=== PATIENT | male | born 1955 | race Caucasian/White ===

== ENCOUNTER 2021-04-19 03:50 | Inpatient (IN) | payer MEDICARE, SELFPAY ==
[2021-04-19 05:47] LABS: SARS-CoV-2 NAA Rapid Test Not Detected (NotDetected)
[2021-04-19] MEDS ORDERED: Senokot S 8.6-50 MG TAB PO PRN (07:42)
[2021-04-19] MEDS ORDERED: Acetaminophen 325 MG TAB PO PRN (07:42)
[2021-04-19] MEDS ORDERED: Ondansetron PF 4 MG/2 ML Vial IVP PRN (07:42)
[2021-04-19] MEDS ORDERED: Dextrose 5% in Water 1,000 ML IV PRN (07:54)
[2021-04-19] MEDS ORDERED: HumaLOG 300 UNITS/3 ML VIAL SC PRN (07:54)
[2021-04-19] MEDS ORDERED: Dextrose 50% Abboject 50 ML SYRINGE SLOW IVP PRN (07:54)
[2021-04-19 08:16] LABS: Troponin I 0.048 ng/mL (< 0.028)
[2021-04-19 08:17] LABS: Cardiac Risk 2.8 (Less than 4.5)
[2021-04-19] MEDS ORDERED: Enoxaparin Sodium 40 MG/0.4 ML SYRINGE SC SCH (09:00)
[2021-04-19] MEDS: Heparin 5,000 UNITS/ML VIAL SC SCH ×3 (09:10→20:54)
[2021-04-19 13:03] LABS: Troponin I 0.032 ng/mL (< 0.028)
[2021-04-19 15:43] LABS: Troponin I 0.047 ng/mL (< 0.028)
[2021-04-19 17:03] LABS: Bilirubin Negative (Negative); Blood, Urine 1+ (Negative); Clarity Turbid (Clear); Glucose, Urine (Dipstick) Normal (Negative); Ketone, Urine Negative (Negative); Leukocyte 250 Leu/uL (Negative); Nitrite Negative (Negative); Protein, Urine (Dipstick) 30 mg/dL (Neg-Trace); Squamous Epithelial None Seen HPF (0-3); Urobilinogen Normal mg/dL (Less than 2)
[2021-04-19 17:05] LABS: Bacteria/HPF 2+ HPF (None Seen)
[2021-04-19 17:07] LABS: Urine Culture Reflex Yes Yes
[2021-04-19] MEDS: Atorvastatin Calcium 40 MG TAB PO SCH (20:54)
[2021-04-20 05:43] LABS: Hemoglobin A1c 7.9 % (4.0-6.0)
[2021-04-20 05:49] LABS: #Eosinphils 0.3 thou/uL (0.0-0.7); #Lymphocytes 0.9 thou/uL (1.20-3.40); #Monocytes 0.5 thou/uL (0.11-0.59); #Neutrophils 3.1 thou/uL (1.40-6.50); %Basophils 0.6 % (0.0-1.0); %Eosinophils 5.5 % (0.0-10.0); %Lymphocytes 18.1 % (21.0-51.0); %Monocytes 10.6 % (0.0-10.0); %Neutrophils 65.3 % (42.0-75.0); Hemoglobin 11.1 g/dL (14.0-18.0); Mean Corpuscular Hemoglobin 27.1 pg (27.0-31.0); Mean Corpuscular Volume 87.5 fL (78.0-98.0); Mean Platelet Volume 11.5 fL (7.4-10.4); Platelet Count 134 thou/uL (130-400); RBC Distribution Width 17.8 % (11.5-14.5); Red Blood Cell (RBC) Count 4.08 mill/uL (4.70-6.10); White Blood Cell (WBC) Count 4.7 thou/uL (4.8-10.8)
[2021-04-20 06:06] LABS: ALT (SGPT) 10 U/L (8-55); AST (SGOT) 14 U/L (5-34); Alkaline Phosphatase 105 U/L (40-110); Anion Gap 14 mmol/L (10-20); BUN (Urea Nitrogen) 66 mg/dL (8.4-25.7); Bilirubin, Total 0.6 mg/dL (0.2-1.2); Calc. Creatinine Clearance 20 mL/min (70-130); Calcium 8.5 mg/dL (7.8-10.44); Carbon Dioxide 22 mmol/L (23-31); Cardiac Risk 3.1 (Less than 4.5); Chloride 104 mmol/L (98-107); Cholesterol 103 mg/dl (< 200 Desired); Globulin 2.2 g/dL (2.4-3.5); Glucose 90 mg/dL (80-115); HDL Cholesterol 33 mg/dL (>60 Neg Risk); LDL Cholesterol, Calculated 57 mg/dL; Magnesium 1.8 mg/dL (1.6-2.6); Protein, Total 5.2 g/dL (5.8-8.1); Sodium 136 mmol/L (136-145); Triglycerides 66 mg/dL (Less than 150)
[2021-04-20 07:52] LABS: PTT 30.9 sec (22.9-36.1); Prothrombin Time 13.8 sec (12.0-14.7)
[2021-04-20] MEDS: Heparin 5,000 UNITS/ML VIAL SC SCH ×3 (08:55→20:15)
[2021-04-20] MEDS: Aspirin 81 mg Enteric Coated Tablet PO SCH (08:55)
[2021-04-20] MEDS ORDERED: Sodium Bicarbonate 2.5 MEQ/5 ML VIAL ONE (09:44)
[2021-04-20] MEDS ORDERED: Lidocaine 1% PF 5 ML VIAL ONE (09:44)
[2021-04-20] MEDS ORDERED: Fentanyl 100 MCG/2 ML VIAL ONE (10:17)
[2021-04-20] MEDS ORDERED: Midazolam HCl 2 mg/2 ml Vial ONE (10:17)
[2021-04-20] MEDS ORDERED: Sodium Chloride 0.9% 20 ML ONE (10:18)
[2021-04-20 11:05] VITALS: BMI 26.8
[2021-04-20 14:23] LABS: RBC Count-Automated (BF) 0 /cu.mm; WBC/Nucleated-Auto (BF) 10 uL
[2021-04-20 14:40] LABS: Pleural Fluid, Amylase Less than 30 U/L (Not Available); Pleural Fluid, Glucose 102 mg/dL; Pleural Fluid, LDH 46 U/L (Not Available); Pleural Fluid, Protein Less than 1.0 g/dL
[2021-04-20 14:45] LABS: BF Color Yellow; Body Fluid Source Pleural Fluid; Clarity Clear (Clear); Tube # EDTA
[2021-04-20 14:48] LABS: BF Segmented Neutrophils 29 %; Cell Count Non Hematic 54 %; Lymphocytes 17 %
[2021-04-20] MEDS: Bumetanide 1 MG/4 ML VIAL IVP SCH (15:20)
[2021-04-20] MEDS: Atorvastatin Calcium 40 MG TAB PO SCH (20:15)
[2021-04-21] MEDS: Bumetanide 1 MG/4 ML VIAL IVP SCH ×2 (05:02→13:42)
[2021-04-21] MEDS: Heparin 5,000 UNITS/ML VIAL SC SCH ×3 (08:28→22:04)
[2021-04-21] MEDS: Aspirin 81 mg Enteric Coated Tablet PO SCH (08:28)
[2021-04-21] MEDS: Atorvastatin Calcium 40 MG TAB PO SCH (22:04)
[2021-04-22] MEDS: Bumetanide 1 MG/4 ML VIAL IVP SCH ×2 (07:10→11:28)
[2021-04-22] MEDS: Heparin 5,000 UNITS/ML VIAL SC SCH ×2 (08:42→13:57)
[2021-04-22] MEDS: Aspirin 81 mg Enteric Coated Tablet PO SCH (08:42)
[2021-04-22 11:18] VITALS: BP 85/62; TEMP 97.9
[2021-04-23 11:41] LABS: Fungus Stain Final report (.)
== END 2021-04-22 17:22 | DRG 291 ==
LOC: ERS 03:50 → 2SW 04:39 → OBSVTOIN 04-21 12:55 → 2NO 04-21 18:47
PROVIDERS: ADMIT Internal Medicine; ATTEND Internal Medicine
PROC: 0W993ZZ Drainage of Right Pleural Cavity, Percutaneous Approach (ICD-10-PCS; principal; 2021-04-20)
DX: I13.0 Hypertensive heart and chronic kidney disease with heart failure and stage 1 through stage 4 chronic kidney disease, or unspecified chronic kidney disease (principal); I50.23 Acute on chronic systolic (congestive) heart failure; N17.9 Acute kidney failure, unspecified; J90 Pleural effusion, not elsewhere classified; E78.5 Hyperlipidemia, unspecified; E11.22 Type 2 diabetes mellitus with diabetic chronic kidney disease; N18.9 Chronic kidney disease, unspecified; I95.9 Hypotension, unspecified; I34.0 Nonrheumatic mitral (valve) insufficiency; Z20.822 Contact with and (suspected) exposure to COVID-19
CPT/HCPCS: 36415; 36416; 71045; 71250; 76770; 76942; 80053; 80061; 81001; 82150; 82945; 83036; 83615; 83735; 83880; 84157; 84443; 85025; 85060; 85610; 85730; 87070; 87086; 87116; 87205; 87206; 88112; 88305; 89051; 93306; 96372; 99285; G0378; J1644; J2250; J3010; U0002; U0005